=== PATIENT | male | born 1965 | race Caucasian/White ===

== ENCOUNTER 2021-07-19 10:03 | Emergency (ER) | payer OTHER ==
--- NOTE | 2021-07-19 11:48 | XR ---
EXAMINATION TYPE: XR chest 2V DATE OF EXAM: 07/19/2021 COMPARISON: None INDICATION: Cough, fever, Covid TECHNIQUE: Frontal and lateral views of the chest are obtained. FINDINGS: The heart size is normal. The pulmonary vasculature is normal. The lungs are clear. IMPRESSION: 1. No acute pulmonary process radiographically evident. Follow-up can be performed as clinically kevin cated.
[2021-07-19] MEDS ORDERED: CASIRIVIMAB (REGN10933) (EUA) 600 MG, IMDEVIMAB (REGN10987) (EUA) 600 MG in SODIUM CHLO... IVPB ONE (13:00)
[2021-07-19] MEDS ORDERED: SODIUM CHLORIDE 0.9% 50 ML IVPB ONE (13:30)
[2021-07-19] MEDS ORDERED: IBUPROFEN 600 MG TAB PO STA (14:08)
[2021-07-19 14:09] VITALS: BP 115/72; PULSE 87; RESP 16; TEMP 100.6
--- NOTE | 2021-07-19 14:32 | ED ---
URI HPI - General Chief Complaint: Upper Respiratory Infection Stated Complaint: covid+, DONNA Time Seen by Provider: 07/19/21 12:22 Source: patient, RN notes reviewed Mode of arrival: ambulatory Limitations: no limitations - History of Present Illness Initial Comments: Patient is a 56-year-old male presenting to the emergency department with concerns for worsening Covid symptoms. Patient states he tested positive about a week ago for cold fluid, was having minimal complaints then but over the past few days feels like he is having worsening shortness of breath, worsening congestion and wanted to come in for evaluation. In monitoring his decision levels at home with a finger O2 liter, he states it's normally been anywhere from 92-99%. He states once in a great while does drop below 90 but quickly comes up. Has been having intermittent fevers, some mild nausea. Patient denies any chest pain at this time. Patient has no further complaints. Upon arrival to the ER his vitals are stable. - Related Data Home Medications Medication Instructions Recorded Confirmed Albuterol Inhaler [Ventolin Hfa 2 puff INHALATION RT-Q4H PRN 07/19/21 07/19/21 Inhaler] Dm/Acetaminophen/Doxylamine [Vicks 30 ml PO Q4H PRN 07/19/21 07/19/21 Nyquil Cold-Flu Liquid] Ibuprofen [Motrin Ib] 400 mg PO Q8H PRN 07/19/21 07/19/21 guaiFENesin [Mucinex] 600 mg PO BID PRN 07/19/21 07/19/21 Previous Rx's Medication Instructions Recorded Dexamethasone [Decadron] 6 mg PO DAILY 5 Days #5 tablet 07/19/21 Allergies Allergy/AdvReac Type Severity Reaction Status Date / Time No Known Allergies Allergy Verified 07/19/21 14:12 Review of Systems ROS Statement: Those systems with pertinent positive or pertinent negative responses have been documented in the HPI. ROS Other: All systems not noted in ROS Statement are negative. Past Medical History Past Medical History: No Reported History History of Any Multi-Drug Resistant Organisms: None Reported Past Surgical History: No Surgical Hx Reported Past Psychological History: No Psychological Hx Reported Smoking Status: Former smoker Past Alcohol Use History: Occasional Past Drug Use History: None Reported General Exam - General Exam Comments Initial Comments: GENERAL: Patient is well-developed and well-nourished. Patient is nontoxic and in no acute distress. HEAD: Atraumatic, normocephalic. EYES: Pupils equal round and reactive to light, extraocular movements intact, sclera anicteric, conjunctiva are normal. Eyelids were unremarkable. ENT: Oropharynx clear without exudates. Moist mucous membranes. NECK: Normal range of motion, supple without lymphadenopathy or JVD. LUNGS: Unlabored respirations. Mild scattered wheezes in the upper [place]. HEART: Regular rate and rhythm without murmurs, rubs or gallops. ABDOMEN: Soft, nontender, normoactive bowel sounds. No guarding, no rebound. No masses appreciated. MUSCULOSKELETAL: Normal extremities with adequate strength and normal range of motion, no pitting or edema. No clubbing or cyanosis. NEUROLOGICAL: Patient is alert and oriented x 3. Normal speech, normal gait. PSYCH: Normal mood, normal affect. SKIN: Warm, Dry, normal turgor, no rashes or lesions noted. Limitations: no limitations Course Vital Signs 07/19/21 07/19/21 10:48 14:07 Temperature 99.2 F 100.6 F H Pulse Rate 84 87 Respiratory 18 16 Rate Blood Pressure 100/68 115/72 O2 Sat by Pulse 97 95 Oximetry Medical Decision Making - Medical Decision Making Patient is a 56-year-old male here with worsening Covid symptoms. He was diagnosed 8 days ago, had mild symptoms and now slightly more severe. His vital signs are stable upon arrival. Patient does qualify for monoclonal antibodies, he did receive these without adverse side effects. Chest x-ray showing no acute process at this time. Patient will be prescribed steroid for the slight wheezes. He does have an albuterol inhaler home, recommended using this for the shortness of breath and cough. He is agreeable to this plan of care. He will follow up with his primary care. Return parameters were discussed with him and he verbalized understanding. - Lab Data Lab Results 07/19/21 Range/Units 10:56 Coronavirus (PCR) Detected A (Not Detectd) Disposition Clinical Impression: COVID-19 Disposition: HOME SELF-CARE Condition: Stable Instructions (If sedation given, give patient instructions): Coronavirus Disease 2019 (COVID-19) Additional Instructions: Please return to the Emergency Department if symptoms worsen or any other concerns. Recommend Tylenol and/or Motrin for fever control. Take steroids as prescribed, use inhaler as needed for shortness of breath. Follow-up with your primary care. Prescriptions: Dexamethasone [Decadron] 6 mg PO DAILY 5 Days #5 tablet Is patient prescribed a controlled substance at d/c from ED?: No Referrals: None,Stated [Primary Care Provider] - 1-2 days Time of Disposition: 14:32
== END 2021-07-19 14:47 | disposition home or self-care (01) ==
LOC: EC 10:03
DX: U07.1 COVID-19 (principal); Z87.891 Personal history of nicotine dependence
CPT/HCPCS: 87635; 71046; 99284; 96365; Q0243